=== PATIENT | male | born 1960 | race Caucasian/White ===

== ENCOUNTER 2018-01-30 17:43 | Inpatient (IN) | payer BC ==
--- NOTE | 2018-01-30 18:07 | ED ---
General Adult HPI - General Chief complaint: Nausea/Vomiting/Diarrhea Stated complaint: NVD Time Seen by Provider: 01/30/18 17:51 Source: patient, EMS, RN notes reviewed, old records reviewed Mode of arrival: EMS Limitations: no limitations - History of Present Illness Initial comments: 57-year-old male presents from outside hospital as transfer for surgical evaluation. Patient has remote history of Janette fundoplication, cholecystectomy. Patient states that approximately one week ago he developed some diarrhea and low-grade fevers. He states he took an antidiarrheal medication and became somewhat constipated for several days. He did take a laxative and has had diarrhea since that time over the past 3 days. He is also had significant dry heaving with no real vomit. He's had low-grade temperature over the past week as well. He presented to outside hospital received a symptomatic treatment, computed tomography scan, and was transferred for further evaluation and treatment. - Related Data Home Medications Medication Instructions Recorded Confirmed Cholestyramine (with Sugar) 0 gm PO DAILY 02/19/16 02/21/16 [Cholestyramine Powder] L.acidoph,Paracasei, B.lactis 1 each PO DAILY 02/19/16 02/19/16 [Probiotic] Nascent Iodine Drops 3 drops PO DAILY 02/19/16 02/19/16 Vitiamin B12 Drops 1 ml PO DAILY 02/19/16 02/19/16 Vitiamin D Drops 1 ml PO DAILY 02/19/16 02/19/16 Previous Rx's Medication Instructions Recorded Hydrocodone/Acetaminophen [Mims 1 - 2 each PO Q6HR PRN #30 tab 02/21/16 5-325] Allergies Allergy/AdvReac Type Severity Reaction Status Date / Time No Known Allergies Allergy Verified 01/30/18 17:58 Review of Systems ROS Statement: Those systems with pertinent positive or pertinent negative responses have been documented in the HPI. ROS Other: All systems not noted in ROS Statement are negative. Past Medical History Past Medical History: GERD/Reflux Additional Past Medical History / Comment(s): had reggie fundoplasty for gerd History of Any Multi-Drug Resistant Organisms: None Reported Past Surgical History: Cholecystectomy, Hernia Repair Additional Past Surgical History / Comment(s): Reggie fundoplasty Past Anesthesia/Blood Transfusion Reactions: Postoperative Nausea & Vomiting ( PONV) Past Psychological History: No Psychological Hx Reported Smoking Status: Never smoker Past Alcohol Use History: Occasional Past Drug Use History: None Reported - Past Family History Mother Family Medical History: No Reported History General Exam Limitations: no limitations General appearance: alert, in no apparent distress Head exam: Present: atraumatic, normocephalic Eye exam: Present: normal appearance, PERRL ENT exam: Present: mucous membranes dry, other (Herpetic outbreak on her lower lip) Neck exam: Present: normal inspection. Absent: tenderness, meningismus Respiratory exam: Present: normal lung sounds bilaterally. Absent: respiratory distress, wheezes Cardiovascular Exam: Present: normal rhythm, bradycardia GI/Abdominal exam: Present: soft, tenderness (Mild periumbilical tenderness). Absent: distended Extremities exam: Present: normal inspection, full ROM, normal capillary refill. Absent: pedal edema Back exam: Present: normal inspection, full ROM Neurological exam: Present: alert, oriented X3, CN II-XII intact. Absent: motor sensory deficit Psychiatric exam: Present: normal affect, normal mood Skin exam: Present: warm, dry, intact. Absent: cyanosis, diaphoretic Course Vital Signs 01/30/18 17:50 Temperature 99.3 F Pulse Rate 57 L Respiratory 14 Rate Blood Pressure 134/72 O2 Sat by Pulse 96 Oximetry Medical Decision Making - Medical Decision Making 57-year-old male presenting for further evaluation treatment as transfer patient from outside hospital. Patient is asymptomatic at the time my evaluation. He has no pain complaints. His had no nausea vomiting or diarrhea. Laboratory studies reviewed from outside hospital, white blood cell count is 17 , hemoglobin stable at 14, lipase normal, mild elevation in AST and ALT. Normal kidney function. Lactic acid normal 1.2. Patient did receive ceftriaxone and Flagyl as well as Protonix prior to transfer. CT reviewed shows inflammation surrounding the duodenum consistent with duodenitis, there is also some reactive changes around the aorta. Case is discussed with Dr. 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 Marie. Patient will be admitted to internal medicine, continue proton pump inhibitor and ceftriaxone and Flagyl. General surgery on consult. Disposition Clinical Impression: Duodenitis Disposition: ADMITTED IP TO THIS HOSP Condition: Stable Is patient prescribed a controlled substance at d/c from ED?: No Referrals: Jose Garrett MD [Primary Care Provider] - 1-2 days Decision to Admit Reason: Admit from EC Decision Date: 01/30/18 Decision Time: 18:07
[2018-01-30] MEDS ORDERED: NALOXONE 0.4 MG/ML 1 ML VIAL IV PRN (18:08)
[2018-01-30] MEDS ORDERED: 0.9% NACL WITH KCL 20 MEQ/L 1,000 ML IV SCH (18:15)
[2018-01-30 21:03] VITALS: BMI 25.8
[2018-01-30] MEDS: MORPHINE SULFATE 2 MG/ML SYRINGE IV PRN (21:14)
[2018-01-30] MEDS: PANTOPRAZOLE 40 MG/10 ML VIAL IVP SCH (21:15)
[2018-01-30] MEDS: ONDANSETRON 4 MG/2 ML VIAL IVP PRN (21:15)
[2018-01-30] MEDS ORDERED: ACETAMINOPHEN TAB 325 MG TAB PO PRN (22:33)
[2018-01-31] MEDS: metroNIDAZOLE-NS PMX 500 MG in SALINE 1 100ML.BAG IVPB SCH ×2 (00:13→09:20)
[2018-01-31] MEDS: MORPHINE SULFATE 2 MG/ML SYRINGE IV PRN ×4 (00:14→21:59)
[2018-01-31 08:24] LABS: Basophils # (A) 0.1 k/uL (0-0.2); Basophils % (A) 1 %; Eosinophils % (A) 0 %; HCT 40.6 % (39.0-53.0); HGB 13.6 gm/dL (13.0-17.5); Lymphocytes % (A) 15 %; MCH 30.3 pg (25.0-35.0); MCHC 33.4 g/dL (31.0-37.0); MCV 90.7 fL (80.0-100.0); Mean Platelet Volume 7.1; Monocytes # (A) 1.2 k/uL (0-1.0); Monocytes % (A) 9 %; Neutrophils # (A) 10.3 k/uL (1.3-7.7); Neutrophils % (A) 74 %; Platelet Count 370 k/uL (150-450); RBC 4.48 m/uL (4.30-5.90); RDW 13.2 % (11.5-15.5)
[2018-01-31 08:29] LABS: ALT 79 U/L (21-72); AST 61 U/L (17-59); Alkaline Phosphatase 151 U/L (38-126); Amylase 47 U/L (30-110); Anion Gap 14 mmol/L; Blood Urea Nitrogen 13 mg/dL (9-20); Calcium 8.3 mg/dL (8.4-10.2); Carbon Dioxide 24 mmol/L (22-30); Chloride 102 mmol/L (98-107); Glucose 90 mg/dL (74-99); Lipase 52 U/L (23-300); Magnesium 1.9 mg/dL (1.6-2.3); Potassium 3.9 mmol/L (3.5-5.1); Sodium 140 mmol/L (137-145); Total Bilirubin 0.5 mg/dL (0.2-1.3); Total Protein 5.5 g/dL (6.3-8.2)
[2018-01-31] MEDS ORDERED: cefTRIAXone IN SWFI 1,000 MG/10 ML SYRINGE IVP SCH (09:00)
[2018-01-31] MEDS: ONDANSETRON 4 MG/2 ML VIAL IVP PRN (09:19)
[2018-01-31] MEDS: PANTOPRAZOLE 40 MG/10 ML VIAL IVP SCH (09:25)
[2018-01-31] MEDS ORDERED: valACYclovir 500 MG TAB PO PRN (10:13)
[2018-01-31] MEDS ORDERED: CHOLESTYRAMINE (WITH SUGAR) 4 GM PACKET PO PRN (10:13)
[2018-01-31] MEDS ORDERED: PROPOFOL 10 MG/ML 20 ML VIAL IV ONE (10:21)
[2018-01-31] MEDS ORDERED: LIDOCAINE 1% INJ 10MG/ML (20 ML MDV) ONE (10:21)
[2018-01-31] MEDS ORDERED: SODIUM CHLORIDE 0.9% 500 ML IV ONE ×2 (10:28)
--- NOTE | 2018-01-31 10:45 | P.PCN ---
Date of Procedure: 01/31/18 Description of Procedure: PREOPERATIVE DIAGNOSIS: Duodenitis per computed tomography scan Epigastric abdominal pain History of Janette fundoplasty History of Darden's esophagus POSTOPERATIVE DIAGNOSIS: Superficial gastric antral ulcers without bleeding Superficial duodenal ulcer second portion without bleeding OPERATION: Esophagogastroduodenoscopy with biopsies along antrum and duodenum SURGEON: Shannon Huffman MD ANESTHESIA: MAC. INDICATIONS: The patient is a 57-year-old male transferred from outside facility with duodenitis including leukocytosis and abdominal pain. Benefits and risks of the procedure were described. Informed consent was obtained. DESCRIPTION: The patient was brought into the endoscopy suite and laid in the left lateral decubitus position. An Olympus gastroscope was passed along the posterior oropharynx down to the distal esophagus where the squamocolumnar junction was encountered at 40 cm from the incisors. The stomach was entered and no bile reflux was found. Additional findings are listed below. Biopsies with cold forceps were obtained of the antrum. The first through third portion of the duodenum was examined and remarkable for superficial duodenal ulcer second portion. Retroflexion of the scope confirmed Hill grade 1 lower esophageal valve. The squamocolumnar junction demostrated no LA grade A erosive esophagitis. The stomach was desufflated. The patient tolerated the procedure well. FINDINGS: Squamocolumnar junction 40 cm from the incisors. Diaphragmatic hiatus at 40 cm. No recurrent diaphragmatic hiatal hernia Janette fundoplasty intact Hill grade 1 lower esophageal valve. No LA grade A erosive esophagitis. Superficial duodenal ulcer without bleeding at second portion Multiple superficial gastric ulcers along antrum without bleeding No recurrent Darden's identified RECOMMENDATIONS: Start medication for multiple ulcers. IV fluid hydration. Upper endoscopy is needed
--- NOTE | 2018-01-31 11:40 | P.GSCN ---
<Deborah Spears - Last Filed: 01/31/18 11:15> History of Present Illness Consult date: 01/31/18 Reason for Consult: Nausea vomiting diarrhea History of present illness: 57-year-old male being seen at the request of the attending for a surgical eval who presented on the day of admission to the emergency room with a chief complaint of developing nausea vomiting no frequent stooling. Patient does have a history of having a prior cholecystectomy, romeo fundoplication. She reports over the last week he had not been feeling well increased fatigue decreased endurance felt like he was running a low-grade temp. Stated that he did develop nausea sensation poor oral intake. Stated that he did become constipated for several days and did take [id number] laxative has been having frequent loose stools since then. Patient did have a CAT scan done at [place] and was transferred to [place] for further eval and treatment patient is known to Dr. Huffman service was seen in February 2016 at that time underwent laparoscopic ventral incisional hernia repair with mesh. Patient states he has been doing relatively well up until the current episode. Seen in the emergency room the temp was 99.3 the Patient was seen by Dr. Huffman and did undergo today an EGD with biopsies along antrum and duodenum. Reviewing the procedure report indicate findings superficial gastric antral ulcers without bleeding superficial duodenal ulcer second portion without bleeding Review of Systems Essentially unremarkable except as mentioned in the present illness Past Medical History Past Medical History: GERD/Reflux Additional Past Medical History / Comment(s): had jerry fundoplasty for gerd in 2013, cholecystectomy in 2013 History of Any Multi-Drug Resistant Organisms: None Reported Past Surgical History: Cholecystectomy, Hernia Repair Additional Past Surgical History / Comment(s): Jerry fundoplasty Past Anesthesia/Blood Transfusion Reactions: Motion Sickness, Postoperative Nausea & Vomiting (PONV) Past Psychological History: No Psychological Hx Reported Smoking Status: Never smoker Past Alcohol Use History: Occasional Past Drug Use History: None Reported - Past Family History Mother Family Medical History: Cancer Additional Family Medical History / Comment(s): Breast Cancer; Father Family Medical History: Pneumonia Additional Family Medical History / Comment(s): Medications and Allergies Home Medications Medication Instructions Recorded Confirmed Type Cholestyramine (with Sugar) 4 gm PO DAILY PRN 01/30/18 01/30/18 History [Cholestyramine Packet] Cyanocobalamin (Vitamin B-12) 1,000 mcg PO DAILY 01/30/18 01/30/18 History [Vitamin B-12] Iodine 1 dose PO DAILY 01/30/18 01/30/18 History valACYclovir HCL [Valtrex] 500 mg PO Q8HR PRN 01/30/18 01/30/18 History Allergies Allergy/AdvReac Type Severity Reaction Status Date / Time No Known Allergies Allergy Verified 01/30/18 18:12 Surgical - Exam Vital Signs Temp Pulse Resp BP Pulse Ox 99.3 F 57 L 14 134/72 96 01/30/18 17:50 01/30/18 17:50 01/30/18 17:50 01/30/18 17:50 01/30/18 17:50 GENERAL APPEARANCE: 57-year-old male patient is alert, oriented, in no acute distress. VITAL SIGNS: Reviewed HEENT: Head is normocephalic and atraumatic. Pupils are equal and reactive. The nares are patent. Oropharynx is clear without lesions. Lower lip right corner scabbed area noted from a cold sore NECK: Supple without lymphadenopathy. Traches midline. HEART: S1, S2. Regular rate and rhythm. Denying chest pain LUNGS: No crackles or wheezes are heard. No shortness of breath on room air ABDOMEN: Soft, nontender, nondistended with good bowel sounds. No peritoneal signs. No palpable organomegaly or masses. Currently denying any nausea vomiting no stool documented EXTREMITIES: Normal skin color and turgor. No cyanosis, rash, ulceration, clubbing or edema. Radial pedal pulses are 2/4 bilaterally. NEUROLOGICAL: No focal deficits. Strength and sensation are grossly intact. Results - Labs 01/31/18 07:21 01/31/18 07:21 Abnormal Lab Results - Last 24 Hours (Table) 01/31/18 01/31/18 Range/Units 07:21 07:21 WBC 14.0 H (3.8-10.6) k/uL Neutrophils # 10.3 H (1.3-7.7) k/uL Monocytes # 1.2 H (0-1.0) k/uL Calcium 8.3 L (8.4-10.2) mg/dL AST 61 H (17-59) U/L ALT 79 H (21-72) U/L Alkaline Phosphatase 151 H (38-126) U/L Total Protein 5.5 L (6.3-8.2) g/dL Albumin 3.0 L (3.5-5.0) g/dL Diabetes panel 01/31/18 Range/Units 07:21 Sodium 140 (137-145) mmol/L Potassium 3.9 (3.5-5.1) mmol/L Chloride 102 (98-107) mmol/L Carbon Dioxide 24 (22-30) mmol/L BUN 13 (9-20) mg/dL Creatinine 0.77 (0.66-1.25) mg/dL Glucose 90 (74-99) mg/dL Calcium 8.3 L (8.4-10.2) mg/dL AST 61 H (17-59) U/L ALT 79 H (21-72) U/L Alkaline Phosphatase 151 H (38-126) U/L Total Protein 5.5 L (6.3-8.2) g/dL Albumin 3.0 L (3.5-5.0) g/dL Calcium panel 01/31/18 Range/Units 07:21 Calcium 8.3 L (8.4-10.2) mg/dL Albumin 3.0 L (3.5-5.0) g/dL Pituitary panel 01/31/18 Range/Units 07:21 Sodium 140 (137-145) mmol/L Potassium 3.9 (3.5-5.1) mmol/L Chloride 102 (98-107) mmol/L Carbon Dioxide 24 (22-30) mmol/L BUN 13 (9-20) mg/dL Creatinine 0.77 (0.66-1.25) mg/dL Glucose 90 (74-99) mg/dL Calcium 8.3 L (8.4-10.2) mg/dL Adrenal panel 01/31/18 Range/Units 07:21 Sodium 140 (137-145) mmol/L Potassium 3.9 (3.5-5.1) mmol/L Chloride 102 (98-107) mmol/L Carbon Dioxide 24 (22-30) mmol/L BUN 13 (9-20) mg/dL Creatinine 0.77 (0.66-1.25) mg/dL Glucose 90 (74-99) mg/dL Calcium 8.3 L (8.4-10.2) mg/dL Total Bilirubin 0.5 (0.2-1.3) mg/dL AST 61 H (17-59) U/L ALT 79 H (21-72) U/L Alkaline Phosphatase 151 H (38-126) U/L Total Protein 5.5 L (6.3-8.2) g/dL Albumin 3.0 L (3.5-5.0) g/dL Assessment and Plan Assessment: Impression Present on admission intractable nausea vomiting diarrhea suspect due to duodenitis Mild elevated AST and ALT Computed tomography scan abdomen pelvis report indicate duodenum consistent with duodenitis Status post EGD 31 of January showed superficial gastric antral ulcers and superficial duodenal ulcer second portion without bleeding Plan Continue the protonic 40 mg IV twice a day Clear liquid diet Anti emetics as ordered IV fluid for hydration Pain control Further recommendations pending will follow with you The above impression and plan of care have been discussed and directed by signing physician. Deborah Spears nurse practitioner acting as scribe for signing physician. <Shannon Huffman N - Last Filed: 01/31/18 17:44> Surgical - Exam Vital Signs Temp Pulse Resp BP Pulse Ox 99.3 F 57 L 14 134/72 96 01/30/18 17:50 01/30/18 17:50 01/30/18 17:50 01/30/18 17:50 01/30/18 17:50 Results - Labs 01/31/18 07:21 01/31/18 07:21 Abnormal Lab Results - Last 24 Hours (Table) 01/31/18 01/31/18 Range/Units 07:21 07:21 WBC 14.0 H (3.8-10.6) k/uL Neutrophils # 10.3 H (1.3-7.7) k/uL Monocytes # 1.2 H (0-1.0) k/uL Calcium 8.3 L (8.4-10.2) mg/dL AST 61 H (17-59) U/L ALT 79 H (21-72) U/L Alkaline Phosphatase 151 H (38-126) U/L Total Protein 5.5 L (6.3-8.2) g/dL Albumin 3.0 L (3.5-5.0) g/dL Diabetes panel 01/31/18 Range/Units 07:21 Sodium 140 (137-145) mmol/L Potassium 3.9 (3.5-5.1) mmol/L Chloride 102 (98-107) mmol/L Carbon Dioxide 24 (22-30) mmol/L BUN 13 (9-20) mg/dL Creatinine 0.77 (0.66-1.25) mg/dL Glucose 90 (74-99) mg/dL Calcium 8.3 L (8.4-10.2) mg/dL AST 61 H (17-59) U/L ALT 79 H (21-72) U/L Alkaline Phosphatase 151 H (38-126) U/L Total Protein 5.5 L (6.3-8.2) g/dL Albumin 3.0 L (3.5-5.0) g/dL Calcium panel 01/31/18 Range/Units 07:21 Calcium 8.3 L (8.4-10.2) mg/dL Albumin 3.0 L (3.5-5.0) g/dL Pituitary panel 01/31/18 Range/Units 07:21 Sodium 140 (137-145) mmol/L Potassium 3.9 (3.5-5.1) mmol/L Chloride 102 (98-107) mmol/L Carbon Dioxide 24 (22-30) mmol/L BUN 13 (9-20) mg/dL Creatinine 0.77 (0.66-1.25) mg/dL Glucose 90 (74-99) mg/dL Calcium 8.3 L (8.4-10.2) mg/dL Adrenal panel 01/31/18 Range/Units 07:21 Sodium 140 (137-145) mmol/L Potassium 3.9 (3.5-5.1) mmol/L Chloride 102 (98-107) mmol/L Carbon Dioxide 24 (22-30) mmol/L BUN 13 (9-20) mg/dL Creatinine 0.77 (0.66-1.25) mg/dL Glucose 90 (74-99) mg/dL Calcium 8.3 L (8.4-10.2) mg/dL Total Bilirubin 0.5 (0.2-1.3) mg/dL AST 61 H (17-59) U/L ALT 79 H (21-72) U/L Alkaline Phosphatase 151 H (38-126) U/L Total Protein 5.5 L (6.3-8.2) g/dL Albumin 3.0 L (3.5-5.0) g/dL
[2018-01-31] MEDS ORDERED: HYDROcodone/APAP 5-325MG 1 EACH TAB PO PRN (11:41)
[2018-01-31] MEDS ORDERED: SUCRALFATE 1 GM TAB PO SCH (12:00)
[2018-01-31] MEDS: CYANOCOBALAMIN 500 MCG TAB PO SCH (12:52)
[2018-01-31] MEDS: SODIUM CHLORIDE 0.9% 1,000 ML IV SCH ×2 (12:53→13:55)
[2018-01-31] MEDS ORDERED: FAMOTIDINE 20 MG TAB PO SCH (14:30)
[2018-01-31] MEDS: PIPERACILLIN-TAZOBACTAM 3.375 GM in DEXTROSE/WATER 1 50ML.BAG IVPB SCH (15:51)
--- NOTE | 2018-01-31 16:45 | HP ---
HISTORY AND PHYSICAL DATE OF ADMISSION: 01/30/2018 DATE OF SERVICE: 01/31/2018 PRESENTING COMPLAINT: Nausea, vomiting, diarrhea. HISTORY OF PRESENTING COMPLAINT: This is a very pleasant 57-year-old patient who follows with Dr. Garrett. The patient about a week ago started to have severe diarrhea that started Wednesday, a week ago. The next day patient started having severe bouts of vomiting, started having shaking and chills, then really felt tired and rundown. The next day patient's got admitted to the hospital and then patient had to take her down to the [facility]. The patient did not have a bowel movement for the next 4 days, continued to feel weak, tired, rundown, came back, started again having diarrhea, nausea and vomiting, feeling tired and rundown again, and finally ended up at an outside hospital. A CT scan done there did show patient to have what appeared to be duodenitis/ileitis, and the patient was transferred here. Earlier today in the morning Dr. Huffman did an EGD and the patient was found to have superficial gastric and duodenal ulcer. Patient has a history of Janette fundoplication done previously. The patient does feel tired and rundown. REVIEW OF SYSTEMS: CONSTITUTIONAL: Weak, tired, rundown. HEENT: Patient has cold sores on the lips. RESPIRATORY: None. CARDIOVASCULAR: None. GASTROINTESTINAL: As above. GENITOURINARY: None. MUSCULOSKELETAL: None. DERMATOLOGICAL: None. HEMATOLOGICAL: None. LYMPHATICS: None. PSYCHIATRY: None. NEUROLOGICAL: None. PAST MEDICAL HISTORY: 1. GERD. 2. Vitamin B12 deficiency. PAST SURGICAL HISTORY: 1. Cholecystectomy. 2. Janette fundoplasty. 3. Hernia repair. 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 Does not smoke. Alcohol occasionally. . FAMILY HISTORY: Breast cancer. HOME MEDICATIONS: 1. Cholestyramine 4 grams p.o. daily p.r.n. 2. Valtrex 500 mg q.8 p.r.n. 3. Iodine 1 dose p.o. daily. 4. Vitamin B12 1000 mcg p.o. daily. ALLERGIES: NONE. PHYSICAL EXAMINATION: VITAL SIGNS ON PRESENTATION: Temperature 99.3, pulse 57, respiration 14, blood pressure 134/72, pulse ox 96% on room air. GENERAL APPEARANCE: Average build. Lying in bed, tired- EYES: Pupils equal. Conjunctivae normal. HEENT: External appearance of nose and ears normal. Oral cavity with cold sores on the lower lip on the right side. NECK: JVD not raised. Mass not palpable. RESPIRATORY: Effort normal. Lungs are clear. CARDIOVASCULAR: First and second sounds normal. No edema. ABDOMEN: Soft. Mild central tenderness. No guarding or rigidity. Liver and spleen not palpable. LYMPHATIC: No lymph node palpable in neck or axillae. PSYCHIATRY: Alert and oriented x3. Mood and affect normal. NEUROLOGICAL: Pupils equal. Cranial nerves grossly intact. Power and sensation grossly intact. INVESTIGATIONS: White count 14, hemoglobin 13.6, potassium 3.9, AST 61, ALT 79, albumin 3.0. ASSESSMENT: 1. This is a patient who for one week has had nausea, vomiting, diarrhea , including episodes of chills and rigors. Patient's CT scan at the outside hospital at [place] showed evidence of duodenitis and possible ileitis. The patient has a diagnosis compatible with the same. Could be from a viral/bacterial component. 2. History of Janette fundoplication. 3. Superficial gastric and duodenal ulcer per esophagogastroduodenoscopy. 4. Chronic vitamin B12 deficiency. 5. Herpes simplex virus, type I, labialis. PLAN: Patient will be put on IV Zosyn and IV fluids and will leave it on clear liquids. Will get a GI opinion. Expect patient same. Will also add H2 sindhu. Will also add a PPI in view of the EGD findings. Care was discussed with the patient. Questions were answered. MMODL / IJN: [id number] /
[2018-01-31] MEDS: valACYclovir 500 MG TAB PO SCH (22:00)
[2018-02-01] MEDS: PIPERACILLIN-TAZOBACTAM 3.375 GM in DEXTROSE/WATER 1 50ML.BAG IVPB SCH ×4 (00:01→23:13)
[2018-02-01] MEDS: MORPHINE SULFATE 2 MG/ML SYRINGE IV PRN ×4 (04:58→21:03)
[2018-02-01] MEDS: PANTOPRAZOLE 40 MG TABLET PO SCH (08:19)
[2018-02-01] MEDS: valACYclovir 500 MG TAB PO SCH ×2 (08:19→21:04)
--- NOTE | 2018-02-01 10:10 | P.PN ---
<ReganZeniaDeborah M - Last Filed: 02/01/18 09:58> Subjective Progress Note Date: 02/01/18 57-year-old male sitting up in bed in no new events denies any nausea vomiting no labs this morning afebrile reportedly tolerating full liquid diet Postop January 31 EGD with biopsies along the antrum and duodenum showing superficial gastric ulcers without bleeding and superficial duodenal ulcer second portion without bleeding Objective - Vital Signs Vital signs: Vital Signs Temp 98.4 F 02/01/18 08:02 Pulse 54 L 02/01/18 08:02 Resp 16 02/01/18 08:02 BP 129/61 02/01/18 08:02 Pulse Ox 93 L 02/01/18 08:02 Intake & Output 01/31/18 02/01/18 02/01/18 18:59 06:59 18:59 Intake Total 50 325 Balance 50 325 Intake: IV 50 Intake, IV Titration 325 Amount 0.9% NaCl with KCl 20 Meq 175 /l 1,000 ml @ 50 mls/hr IV .Q20H NICOLE Rx#: [id number] Piperacillin-Tazobactam 3 50 .375 gm In Dextrose/Water 1 50ml.bag @ 12.5 mls/hr IVPB Q8HR NICOLE Rx#: [id number] metroNIDAZOLE-NS PMX 500 100 mg In Saline 1 100ml.bag @ 100 mls/hr IVPB Q8HR NICOLE Rx#:[id number] Other: # Voids 2 2 - Exam Physical exam 57-year-old male sitting up in bed appears in no acute distress Lungs adequate air movement bilaterally on room air with no shortness of breath sats 93% Heart S1-S2 audible regular Abdomen soft nontender no nausea no vomiting Extremities no edema - Labs CBC & Chem 7: 01/31/18 07:21 01/31/18 07:21 Assessment and Plan Assessment: Impression Present on admission intractable nausea vomiting diarrhea suspect due to duodenitis Mild elevated AST and ALT Computed tomography scan abdomen pelvis report indicate duodenum consistent with duodenitis Status post EGD 31 of January showed superficial gastric antral ulcers and superficial duodenal ulcer second portion without bleeding Plan Continue protonix 40 mg daily Clear liquid diet Anti emetics as ordered IV fluid for hydration Pain control From a surgical perspective okay to proceed with a discharge defer to the timing to the attending will follow with you The above impression and plan of care have been discussed and directed by signing physician. Deborah Spears nurse practitioner acting as scribe for signing physician. <ArmidaShannon N - Last Filed: 02/01/18 19:59> Objective - Vital Signs Vital signs: Vital Signs Temp 97.1 F L 02/01/18 14:12 Pulse 65 02/01/18 14:12 Resp 16 02/01/18 14:12 BP 127/71 02/01/18 14:12 Pulse Ox 93 L 02/01/18 14:12 Intake & Output 02/01/18 02/01/18 02/02/18 06:59 18:59 06:59 Intake Total 325 50 Balance 325 50 Intake: IV 50 Piperacillin-Tazobactam 3 50 .375 gm In Dextrose/Water 1 50ml.bag @ 12.5 mls/hr IVPB Q8HR NICOLE Rx#: [id number] Intake, IV Titration 325 Amount 0.9% NaCl with KCl 20 Meq 175 /l 1,000 ml @ 50 mls/hr IV .Q20H NICOLE Rx#: [id number] Piperacillin-Tazobactam 3 50 .375 gm In Dextrose/Water 1 50ml.bag @ 12.5 mls/hr IVPB Q8HR NICOLE Rx#: [id number] metroNIDAZOLE-NS PMX 500 100 mg In Saline 1 100ml.bag @ 100 mls/hr IVPB Q8HR NICOLE Rx#:[id number] Other: # Voids 2 - Labs CBC & Chem 7: 01/31/18 07:21 01/31/18 07:21
[2018-02-01] MEDS: CYANOCOBALAMIN 500 MCG TAB PO SCH (10:18)
--- NOTE | 2018-02-01 10:33 | P.CONS ---
History of Present Illness - Reason for Consult Consult date: 02/01/18 abdominal pain Requesting physician: Dayton Arora - History of Present Illness 57-year-old gentleman well-known to Dr. Marie with a past history of GERD status post Janette fundoplasty 4 years ago admitted with increased nausea vomiting epigastric discomfort. Patient has been taking Motrin over the past week secondary to low-grade temp. CT abdomen and pelvis from outside facility reported duodenitis. He underwent EGD with biopsies yesterday with Dr. Huffman with findings of superficial gastric antral ulcers without bleeding and a superficial duodenal ulcer second portion. Denies hematemesis hematochezia melena. Has a few alcohol drinks mostly on the weekends. No chemistries to review today however white count yesterday 14. Hemoglobin 13.6. BUN 13. Creatinine 0.7. AST 61. ALT 79. AP 151. Total bilirubin 0.5. Review of Systems Constitutional: Denies fever, chills, sweats, weight gain, or loss. HEENT: Negative for migraines, blurred vision or loss, earaches, drainage, tinnitus, oral mucosal lesions, dysphagia, or odynophagia. Cardiac: Negative for chest pain, arrhythmias, or palpitation. Respiratory: Negative for shortness of breath, hemoptysis, cough, or sputum production. Gastrointestinal: See HPI for pertinent findings. Genitourinary: Negative for hematuria, urgency, frequency, polyuria, dysuria, or penile discharge. Musculoskeletal: Negative for muscle aches, swelling, arthritis, and arthralgias. Neurologic: Negative for stroke or TIA. Endocrine: Negative for thyroid problems. Skin: Negative for rash or itching. Psychiatric: Negative history for depression and anxiety Past Medical History Past Medical History: GERD/Reflux Additional Past Medical History / Comment(s): had jerry fundoplasty for gerd in 2014, cholecystectomy in 2014 History of Any Multi-Drug Resistant Organisms: None Reported Past Surgical History: Cholecystectomy, Hernia Repair Additional Past Surgical History / Comment(s): Jerry fundoplasty Past Anesthesia/Blood Transfusion Reactions: Motion Sickness, Postoperative Nausea & Vomiting (PONV) Past Psychological History: No Psychological Hx Reported Smoking Status: Never smoker Past Alcohol Use History: Occasional Past Drug Use History: None Reported - Past Family History Mother Family Medical History: Cancer Additional Family Medical History / Comment(s): Breast Cancer; Father Family Medical History: Pneumonia Additional Family Medical History / Comment(s): Medications and Allergies Home Medications Medication Instructions Recorded Confirmed Type Cholestyramine (with Sugar) 4 gm PO DAILY PRN 01/30/18 01/30/18 History [Cholestyramine Packet] Cyanocobalamin (Vitamin B-12) 1,000 mcg PO DAILY 01/30/18 01/30/18 History [Vitamin B-12] Iodine 1 dose PO DAILY 01/30/18 01/30/18 History valACYclovir HCL [Valtrex] 500 mg PO Q8HR PRN 01/30/18 01/30/18 History Pantoprazole Sodium [Protonix] 40 mg PO DAILY #30 tablet. 02/01/18 Rx Allergies Allergy/AdvReac Type Severity Reaction Status Date / Time No Known Allergies Allergy Verified 01/30/18 18:12 Physical Exam Vitals: Vital Signs Temp Pulse Resp BP Pulse Ox 02/01/18 09:15 98.4 F 55 L 16 143/75 93 L 02/01/18 08:02 98.4 F 54 L 16 129/61 93 L 02/01/18 02:00 97.2 F L 59 L 16 138/72 92 L 01/31/18 20:00 97.6 F 59 L 18 146/88 92 L 01/31/18 15:27 99.3 F 65 16 149/67 95 01/31/18 10:55 99.5 F 63 16 144/74 95 Intake and Output 01/31/18 02/01/18 02/01/18 22:59 06:59 14:59 Intake Total 175 150 Balance 175 150 Intake: Intake, IV Titration 175 150 Amount 0.9% NaCl with KCl 20 Meq 175 /l 1,000 ml @ 50 mls/hr IV .Q20H [facility] Rx#: [id number] Piperacillin-Tazobactam 3 50 .375 gm In Dextrose/Water 1 50ml.bag @ 12.5 mls/hr IVPB Q8HR [facility] Rx#: [id number] metroNIDAZOLE-NS PMX 500 100 mg In Saline 1 100ml.bag @ 100 mls/hr IVPB Q8HR [facility] Rx#:[id number] Other: # Voids 2 2 General appearance: The patient is alert, oriented, in no acute distress. HET: Head is normocephalic and atraumatic. Pupils are equal and reactive. Oropharynx is clear without lesions. Neck: Supple without lymphadenopathy. Trachea midline. Heart: S1 S2. Regular rate and rhythm. Lungs: No crackles or wheezes are heard. Abdomen: Soft, nontender, nondistended with bowel sounds. No peritoneal signs. No palpable organomegaly or masses. Extremities: Normal skin color and turgor. No cyanosis, rash, ulceration, clubbing, or edema. Radial and pedal pulses are 2/4 bilaterally. Neurological: No focal deficits. Strength and sensation are grossly intact. Results CBC & Chem 7: 02/01/18 20:18 02/01/18 20:18 Assessment and Plan (1) Epigastric pain Narrative/Plan: Suspect NSAID induced status post EGD with findings of superficial gastric antral ulcers and duodenal ulcer second portion without bleeding. Current Visit: Yes Status: Acute Code(s): R10.13 - EPIGASTRIC PAIN SNOMED Code(s): 29769617 (2) Duodenitis Current Visit: Yes Status: Acute Code(s): K29.80 - DUODENITIS WITHOUT BLEEDING SNOMED Code(s): 60200124 (3) Barretts esophagus Current Visit: Yes Status: Resolved Code(s): K22.70 - JEROME'S ESOPHAGUS WITHOUT DYSPLASIA SNOMED Code(s): 075533308 (4) Transaminitis Narrative/Plan: Mild transaminitis etiology unclear possible secondary to duodenitis superficial duodenal ulcer however alcohol component cannot be entirely excluded Current Visit: Yes Status: Acute Code(s): R74.0 - NONSPEC ELEV OF LEVELS OF TRANSAMNS & LACTIC ACID DEHYDRGNSE SNOMED Code(s): 811437625 Plan: 1. Avoid NSAIDs and alcohol. Protonix 40 mg daily. Repeat CMP if stable discharge per medicine and surgery. Follow up with [facility] as advised. Thank you for this kind referral and the opportunity to participate in the care of your patient. This consultation was discussed with Dr. Fatima. The impression and plan of care have been directed as dictated.
[2018-02-01] MEDS: ONDANSETRON 4 MG/2 ML VIAL IVP PRN (18:18)
--- NOTE | 2018-02-01 20:32 | P.PN ---
Progress Note - Text Progress Note Date: 02/01/18 Patient seen and evaluated. He reports abdominal pain and diarrhea after drinking predominately milk products. He has history of diverticulosis. CBC and CMP is pending. Recommend regular diet. CBC and CMP ordered. Likely discharge home with follow-up in 2 weeks discussed with patient pending results of blood work.
[2018-02-01 20:39] LABS: Basophils # (A) 0.1 k/uL (0-0.2); Basophils % (A) 1 %; Eosinophils # (A) 0.2 k/uL (0-0.7); Eosinophils % (A) 1 %; HCT 38.6 % (39.0-53.0); HGB 13.1 gm/dL (13.0-17.5); Lymphocytes # (A) 2.6 k/uL (1.0-4.8); Lymphocytes % (A) 17 %; MCH 29.7 pg (25.0-35.0); MCHC 33.9 g/dL (31.0-37.0); MCV 87.7 fL (80.0-100.0); Mean Platelet Volume 6.4; Monocytes # (A) 1.1 k/uL (0-1.0); Monocytes % (A) 7 %; Neutrophils # (A) 10.6 k/uL (1.3-7.7); Neutrophils % (A) 72 %; Platelet Count 479 k/uL (150-450); RDW 13.2 % (11.5-15.5); WBC 14.7 k/uL (3.8-10.6)
[2018-02-01 21:12] LABS: ALT 56 U/L (21-72); AST 34 U/L (17-59); Albumin 2.9 g/dL (3.5-5.0); Alkaline Phosphatase 122 U/L (38-126); Anion Gap 11 mmol/L; Blood Urea Nitrogen 9 mg/dL (9-20); Calcium 8.2 mg/dL (8.4-10.2); Carbon Dioxide 26 mmol/L (22-30); Chloride 100 mmol/L (98-107); Glucose 99 mg/dL (74-99); Potassium 3.6 mmol/L (3.5-5.1); Sodium 137 mmol/L (137-145); Total Bilirubin 0.6 mg/dL (0.2-1.3); Total Protein 5.4 g/dL (6.3-8.2)
--- NOTE | 2018-02-01 23:03 | PN ---
PROGRESS NOTE DATE OF SERVICE: 02/01/2018 PRESENTING COMPLAINT: No nausea, vomiting, diarrhea. INTERVAL HISTORY: This patient presented with abdominal pain, felt to have duodenitis, ileitis. Status post EGD with superficial ulcers, no bleeding. Still having some abdominal pain. Did tolerate some liquids. REVIEW OF SYSTEMS: Done for constitutional, cardiovascular, GI, pulmonary; relevant findings as above. CURRENT MEDICATIONS: Reviewed. They include IV Zosyn and Protonix. PHYSICAL EXAMINATION: Afebrile. Pulse 54, respiration 16, blood pressure 121/61, pulse ox 93% on room air. GENERAL APPEARANCE: Lying in bed, tired-appearing. EYES: Pupils equal. Conjunctivae normal. HEENT: External appearance of nose and ears normal. Oral cavity: Patient has cold sores on the outside lower lip. NECK: JVD not raised. Mass not palpable. RESPIRATORY: Effort normal. Lungs are clear. CARDIOVASCULAR: First and second sounds normal. No edema. ABDOMEN: Mild tenderness. No guarding or rigidity. Bowel sounds present. PSYCHIATRY: Alert and oriented x3. Mood and affect normal. INVESTIGATIONS: White count 14.7, potassium 3.6. AST and ALT are coming down. ASSESSMENT: 1. Possibly acute ileitis and acute duodenitis. It well could be viral. Cannot rule out a bacterial component. 2. History of Janette fundoplication. 3. Superficial gastric duodenal ulcer per esophagogastroduodenoscopy. 4. Chronic vitamin B12 deficiency. 5. Herpes simplex, type 1 labialis. PLAN: Continue current medication and treatment plan. Advance diet as tolerated. Patient encouraged to ambulate. MMODL / IJN: [id number] /
[2018-02-02] MEDS: IOPAMIDOL-300 CONTRAST 30 ML VIAL (ORAL USE) PO PRN ×2 (06:01→06:50)
[2018-02-02] MEDS: MORPHINE SULFATE 2 MG/ML SYRINGE IV PRN ×4 (06:06→19:58)
[2018-02-02] MEDS: PIPERACILLIN-TAZOBACTAM 3.375 GM in DEXTROSE/WATER 1 50ML.BAG IVPB SCH ×2 (08:05→15:29)
[2018-02-02] MEDS: PANTOPRAZOLE 40 MG TABLET PO SCH (08:05)
[2018-02-02] MEDS: valACYclovir 500 MG TAB PO SCH ×2 (08:05→19:58)
--- NOTE | 2018-02-02 10:43 | CT ---
EXAMINATION TYPE: CT abdomen pelvis w con DATE OF EXAM: 02/02/2018 COMPARISON: CT abdomen pelvis 01/30/2018 HISTORY: Duodenitis CT DLP: 1503 mGycm Automated exposure control for dose reduction was used. TECHNIQUE: Helical acquisition of images from the lung bases through the pelvis have been completed. CONTRAST: Performed with Oral Contrast and with IV Contrast, patient injected with 100 mL of Isovue 300. FINDINGS: LUNG BASES: Bibasilar atelectatic changes are present, there are small associated effusion. AORTA: No significant abnormality is appreciated. LIVER/GB: Liver shows low attenuation possibly due to hepatic steatosis, gallbladder is absent PANCREAS: No significant abnormality is seen. SPLEEN: No significant abnormality is seen. ADRENALS: No significant abnormality is seen. KIDNEYS: Hypodense foci are associated with the bilateral kidneys. REPRODUCTIVE ORGANS: No significant abnormality is seen BOWEL: Questionable mucosal thickening within the colon, extensive diverticular change noted in the sigmoid, the appendix thought to be normal. Soft tissue noted within the cecum region could be relate d to luminal content, difficult to exclude a mucosal lesion. FREE AIR: No Free Air visible. ASCITES: Some minimal inflammatory change is present within the mesenteric fat, some minimal fluid e xtending to the pelvis PELVIC ADENOPATHY: None visualized. RETROPERITONEAL ADENOPATHY: No Retroperitoneal Adenopathy visible. URINARY BLADDER: No significant abnormality is seen. OSSEOUS STRUCTURES: Degenerative disc changes are noted in the visualized lumbar spine. IMPRESSION: CORRELATE FOR POSSIBLE COLITIS, CONSIDER BOWEL SURVEILLANCE IF THIS IS NOT BEEN PERFORMED. FINDINGS A T THE LEVEL OF THE CECUM DESCRIBED. INDETERMINATE FLUID WITHIN THE ABDOMEN, CORRELATE FOR PERITONI TIS. SMALL BASILAR EFFUSIONS AND ASSOCIATED ATELECTASIS. DIVERTICULOSIS. ADDITIONAL FINDINGS ABOVE.
--- NOTE | 2018-02-02 10:58 | P.PN ---
Subjective Progress Note Date: 02/02/18 The patient is a 57-year-old gentleman who presented with initial duodenitis on computed tomography scan. Yesterday he reports increased diarrhea including the left lower quadrant abdominal pain. CBC came back elevated and had CT of the abdomen pelvis is ordered by me. He still reports no moderate improvement of his symptoms. He is having diarrhea secondary to full liquid diet as well. Upper endoscopy confirmed duodenal including gastric ulcers. Objective - Vital Signs Vital signs: Vital Signs Temp 97.2 F L 02/02/18 07:03 Pulse 50 L 02/02/18 07:03 Resp 14 02/02/18 07:03 BP 136/68 02/02/18 07:03 Pulse Ox 96 02/02/18 07:03 Intake & Output 02/01/18 02/02/18 02/02/18 18:59 06:59 18:59 Intake Total 50 Balance 50 Weight 81.647 kg Intake: IV 50 Piperacillin-Tazobactam 3 50 .375 gm In Dextrose/Water 1 50ml.bag @ 12.5 mls/hr IVPB Q8HR [facility] Rx#: [id number] Other: # Voids 1 - Exam GENERAL: Well developed and in no acute distress. Pleasant. HEENT: No sclera icterus. Extraocular movements grossly intact. Moist buccal mucosa. Head is atraumatic, normocephalic. Hears conversational speech. No nasal drainage. NECK: Supple without lymphadenopathy. CHEST: Non-labored respirations and equal bilateral excursions. CARDIOVASCULAR: Regular rate and rhythm. Palpable 2+ radial pulses. ABDOMEN: Soft, mild tenderness left lower quadrant. Mild distention. MUSCULOSKELETAL: No clubbing, cyanosis or edema. NEUROLOGIC: No focal or lateralizing signs. PSYCH: Appropriate affect. Alert and oriented to person, place and time. SKIN: Good skin turgor. Well perfused. - Labs CBC & Chem 7: 02/01/18 20:18 02/01/18 20:18 Labs: Abnormal Lab Results - Last 24 Hours (Table) 02/01/18 02/01/18 Range/Units 20:18 20:18 WBC 14.7 H (3.8-10.6) k/uL Hct 38.6 L (39.0-53.0) % Plt Count 479 H (150-450) k/uL Neutrophils # 10.6 H (1.3-7.7) k/uL Monocytes # 1.1 H (0-1.0) k/uL Calcium 8.2 L (8.4-10.2) mg/dL Total Protein 5.4 L (6.3-8.2) g/dL Albumin 2.9 L (3.5-5.0) g/dL - Imaging and Cardiology CT scan - abdomen: image reviewed CT scan - pelvis: image reviewed (Images consistent with acute diverticulitis) Assessment and Plan (1) Diverticulitis large intestine Current Visit: Yes Status: Acute Code(s): K57.32 - DVTRCLI OF LG INT W/O PERFORATION OR ABSCESS W/O BLEEDING SNOMED Code(s): 8714078 (2) Leukocytosis Current Visit: Yes Status: Acute Code(s): D72.829 - ELEVATED WHITE BLOOD CELL COUNT, UNSPECIFIED SNOMED Code(s): 109890029 (3) Epigastric pain Current Visit: Yes Status: Acute Code(s): R10.13 - EPIGASTRIC PAIN SNOMED Code(s): 78848372 (4) Transaminitis Current Visit: Yes Status: Acute Code(s): R74.0 - NONSPEC ELEV OF LEVELS OF TRANSAMNS & LACTIC ACID DEHYDRGNSE SNOMED Code(s): 435491035 (5) Gastric ulcer Current Visit: Yes Status: Acute Code(s): K25.9 - GASTRIC ULCER, UNSP ACUTE OR CHRONIC, W/O HEMOR OR PERF SNOMED Code(s): 838148534 (6) Duodenal ulcer Current Visit: Yes Status: Acute Code(s): K26.9 - DUODENAL ULCER, UNSP ACUTE OR CHRONIC, W/O HEMOR OR PERF SNOMED Code(s): 64773852 Plan: 1. I reviewed his computed tomography scan findings with him which is consistent with his clinical picture of new left lower quadrant abdominal pain and diarrhea consistent with diverticulitis acute. 2. Will need inpatient hospitalization for treatment of acute diverticulitis as he is not responding to antibiotics. 3. PPIs for gastric and duodenal ulcers.
[2018-02-02] MEDS: CYANOCOBALAMIN 500 MCG TAB PO SCH (11:00)
[2018-02-02] MEDS: LACTATED RINGERS 1,000 ML IV SCH ×2 (15:25→23:49)
[2018-02-02] MEDS ORDERED: WITCH HAZEL 1 EACH MED..PAD TOPICAL PRN (15:30)
--- NOTE | 2018-02-02 18:38 | PN ---
PROGRESS NOTE DATE OF SERVICE: 02/02/2018 PRESENTING COMPLAINT: Abdominal pain. INTERVAL HISTORY: Patient presented abdominal pain felt to be duodenitis, ileitis. CT scan was done and is also showing possible element of diverticulitis. Still having some abdominal pain. Patient is having some loose stools. REVIEW OF SYSTEMS: Done for constitutional, cardiovascular, GI, pulmonary; relevant findings as above. CURRENT MEDICATIONS: Reviewed. They include: 1. IV Zosyn. 2. IV fluids. 3. Protonix. PHYSICAL EXAMINATION: Afebrile. Pulse 50, respiration 14, blood pressure 136/68, pulse ox 96% on room air. GENERAL APPEARANCE: Lying in bed, awake. EYES: Pupils equal. Conjunctivae normal. HEENT: External appearance of nose and ears normal. Oral cavity normal. He has cold sores on the outer lower lip. NECK: JVD not raised. Mass not palpable. RESPIRATORY: Effort normal. Lungs are clear. CARDIOVASCULAR: First and second sounds normal. No edema. ABDOMEN: Mild tenderness. No guarding or rigidity. PSYCHIATRY: Alert and oriented x3. Mood and affect normal. INVESTIGATIONS: White count yesterday was 14.7. Potassium 3.6. ASSESSMENT: 1. Acute ileitis/could be mild colitis/duodenitis. 2. History of Janette fundoplication. 3. Superficial gastric and duodenal ulcer per esophagogastroduodenoscopy. 4. Chronic vitamin B12 deficiency. 5. Herpes simplex, type 1, labialis. PLAN: Continue current medication and treatment plan. Patient is on a liquid diet. Will add Imodium after C difficile is ruled out. MMODL / IJN: [id number] /
--- NOTE | 2018-02-02 20:28 | P.PN ---
Progress Note - Text Progress Note Date: 02/02/18 Patient's computed tomography scan consistent with colitis including clinical picture. Patient switched over to Flagyl 500 mg. GI following for colitis. No surgical intervention required. Dr. Chung to cover in my absence
[2018-02-02] MEDS ORDERED: metroNIDAZOLE-NS PMX 500 MG in SALINE 1 100ML.BAG IVPB SCH (20:30)
[2018-02-02] MEDS: DIPHENOX-ATROP 2.5-0.025 MG 1 EACH TAB PO SCH (21:38)
[2018-02-03] MEDS: MORPHINE SULFATE 2 MG/ML SYRINGE IV PRN ×2 (03:44→08:09)
[2018-02-03] MEDS: metroNIDAZOLE-NS PMX 500 MG in SALINE 1 100ML.BAG IVPB SCH ×2 (05:34→13:27)
[2018-02-03] MEDS: ONDANSETRON 4 MG/2 ML VIAL IVP PRN (05:34)
[2018-02-03] MEDS: LACTATED RINGERS 1,000 ML IV SCH (05:34)
[2018-02-03 06:36] VITALS: BP 138/76; PULSE 62; RESP 20; TEMP 99.1
[2018-02-03] MEDS: CYANOCOBALAMIN 500 MCG TAB PO SCH (08:08)
[2018-02-03] MEDS: PANTOPRAZOLE 40 MG TABLET PO SCH (08:09)
[2018-02-03] MEDS: DIPHENOX-ATROP 2.5-0.025 MG 1 EACH TAB PO SCH ×2 (08:13→13:27)
[2018-02-03] MEDS: valACYclovir 500 MG TAB PO SCH (08:13)
[2018-02-03 09:04] LABS: Basophils # (A) 0.1 k/uL (0-0.2); Basophils % (A) 1 %; Eosinophils # (A) 0.3 k/uL (0-0.7); Eosinophils % (A) 2 %; HCT 39.3 % (39.0-53.0); HGB 13.3 gm/dL (13.0-17.5); Lymphocytes # (A) 2.7 k/uL (1.0-4.8); Lymphocytes % (A) 20 %; MCH 30.5 pg (25.0-35.0); MCHC 33.7 g/dL (31.0-37.0); MCV 90.4 fL (80.0-100.0); Mean Platelet Volume 6.9; Monocytes # (A) 0.9 k/uL (0-1.0); Monocytes % (A) 7 %; Neutrophils # (A) 9.4 k/uL (1.3-7.7); Neutrophils % (A) 69 %; Platelet Count 486 k/uL (150-450); RBC 4.35 m/uL (4.30-5.90); WBC 13.5 k/uL (3.8-10.6)
--- NOTE | 2018-02-03 10:43 | P.PN ---
Subjective Progress Note Date: 02/03/18 Principal diagnosis: Epigastric pain antral duodenal ulcers lower abdominal pain colitis Status post EGD for epigastric pain evaluation superficial antral duodenal ulcers. Developed left lower abdominal pain CT abdomen reported possible colitis diverticulosis. Receiving antibiotics. Stool C. diff negative. Diarrhea improving. Minimal abdominal discomfort. Tolerating diet. Dysphagia and discharged today. Afebrile. White count 13.5. Objective - Vital Signs Vital signs: Vital Signs Temp 99.1 F 02/03/18 06:36 Pulse 62 02/03/18 06:36 Resp 20 02/03/18 06:36 BP 138/76 02/03/18 06:36 Pulse Ox 94 L 02/03/18 06:36 Intake & Output 02/02/18 02/03/18 02/03/18 18:59 06:59 18:59 Weight 81.647 kg Other: # Voids 2 2 - Exam General appearance: The patient is alert, oriented, in no acute distress. HET: Head is normocephalic and atraumatic. Pupils are equal and reactive. Oropharynx is clear without lesions. Neck: Supple without lymphadenopathy. Trachea midline. Heart: S1 S2. Regular rate and rhythm. Lungs: No crackles or wheezes are heard. Abdomen: Soft, mild tenderness of left lower abdomen, nondistended with bowel sounds. No peritoneal signs. No palpable organomegaly or masses. Extremities: Normal skin color and turgor. No cyanosis, rash, ulceration, clubbing, or edema. Radial and pedal pulses are 2/4 bilaterally. Neurological: No focal deficits. Strength and sensation are grossly intact. - Labs CBC & Chem 7: 02/03/18 08:07 02/01/18 20:18 Labs: Abnormal Lab Results - Last 24 Hours (Table) 02/03/18 Range/Units 08:07 WBC 13.5 H (3.8-10.6) k/uL Plt Count 486 H (150-450) k/uL Neutrophils # 9.4 H (1.3-7.7) k/uL Microbiology - Last 24 Hours (Table) 02/02/18 14:34 Stool Culture - Preliminary Stool Assessment and Plan (1) Epigastric pain Narrative/Plan: Suspect NSAID induced status post EGD with findings of superficial gastric antral ulcers and duodenal ulcer second portion without bleeding. Current Visit: Yes Status: Acute Code(s): R10.13 - EPIGASTRIC PAIN SNOMED Code(s): 89149770 (2) Duodenitis Current Visit: Yes Status: Acute Code(s): K29.80 - DUODENITIS WITHOUT BLEEDING SNOMED Code(s): 18304789 (3) Barretts esophagus Current Visit: Yes Status: Resolved Code(s): K22.70 - JEROME'S ESOPHAGUS WITHOUT DYSPLASIA SNOMED Code(s): 728183217 (4) Transaminitis Narrative/Plan: Improved resolved Current Visit: Yes Status: Acute Code(s): R74.0 - NONSPEC ELEV OF LEVELS OF TRANSAMNS & LACTIC ACID DEHYDRGNSE SNOMED Code(s): 175223710 (5) Colon, diverticulosis Narrative/Plan: Possible colitis with diarrhea C. diff negative Current Visit: Yes Status: Acute Code(s): K57.30 - DVRTCLOS OF LG INT W/O PERFORATION OR ABSCESS W/O BLEEDING SNOMED Code(s): 860335950 Plan: 1. Case discussed with Dr. Arora discharge per medicine today. Inpatient colonoscopy not advised at this time. Follow up with Dr. Huffman as advised for reevaluation and discussion of outpatient colonoscopy if applicable. Patient states he had a colonoscopy possibly less than 3 years ago. Imodium as needed. Protonix 40 mg daily. Assessment and plan a care discussed with Dr. Fatima
--- NOTE | 2018-02-03 11:45 | P.PN ---
Subjective Progress Note Date: 02/03/18 57-year-old male sitting up in bed. Denies any dizziness lightheadedness chest pain or shortness of breath. Reviewed with patient the plan of care. No surgical intervention required. GI eval noted. Stool for C. diff was negative. Patient states less stooling. Tolerating a diet. White count 13.5. Patient will follow-up in the outpatient setting with Dr. Huffman Objective - Vital Signs Vital signs: Vital Signs Temp 99.1 F 02/03/18 06:36 Pulse 62 02/03/18 06:36 Resp 20 02/03/18 06:36 BP 138/76 02/03/18 06:36 Pulse Ox 94 L 02/03/18 06:36 Intake & Output 02/02/18 02/03/18 02/03/18 18:59 06:59 18:59 Weight 81.647 kg Other: # Voids 2 2 - Exam Physical exam 57-year-old male sitting up in bed appears in no acute distress tolerating a diet states less bowel movements Lungs adequate air movement bilaterally on room air with no shortness of breath sats 93% Heart S1-S2 audible regular Abdomen soft nontender no nausea no vomiting Extremities no edema - Labs CBC & Chem 7: 02/03/18 08:07 02/01/18 20:18 Labs: Abnormal Lab Results - Last 24 Hours (Table) 02/03/18 Range/Units 08:07 WBC 13.5 H (3.8-10.6) k/uL Plt Count 486 H (150-450) k/uL Neutrophils # 9.4 H (1.3-7.7) k/uL Microbiology - Last 24 Hours (Table) 02/02/18 14:34 Stool Culture - Preliminary Stool Assessment and Plan Assessment: Impression Present on admission intractable nausea vomiting diarrhea suspect due to duodenitis Mild elevated AST and ALT Computed tomography scan abdomen pelvis report indicate duodenum consistent with duodenitis Status post EGD 31 of January showed superficial gastric antral ulcers and superficial duodenal ulcer second portion without bleeding Plan Protonix 40 mg daily Defer to medicine for further medical issues Outpatient follow-up with Dr. Huffman recommended From a surgical perspective okay to proceed with a discharge defer to the timing to the attending Progress note dictated for Dr. jason godfrey on behalf of Dr. Armida The above impression and plan of care have been discussed and directed by signing physician. Deborah Spears nurse practitioner acting as scribe for signing physician.
== END 2018-02-03 14:13 | disposition home or self-care (01) | DRG 384 ==
LOC: EC 17:43 → 3SUR 18:08 → 4MS4W 02-01 08:50 → OBSVTOIN 02-02 14:38
PROVIDERS: ADMIT Hospitalist; ATTEND Hospitalist
PROC: 0DB78ZX Excision of Stomach, Pylorus, Via Natural or Artificial Opening Endoscopic, Diagnostic (ICD-10-PCS; principal; 2018-01-31 08:20)
PROC: 0DB98ZX Excision of Duodenum, Via Natural or Artificial Opening Endoscopic, Diagnostic (ICD-10-PCS; principal; 2018-01-31 08:20)
DX: K26.9 Duodenal ulcer, unspecified as acute or chronic, without hemorrhage or perforation (principal); K57.32 Diverticulitis of large intestine without perforation or abscess without bleeding; K25.9 Gastric ulcer, unspecified as acute or chronic, without hemorrhage or perforation; B00.1 Herpesviral vesicular dermatitis; E53.8 Deficiency of other specified B group vitamins; K21.9 Gastro-esophageal reflux disease without esophagitis; K22.70 Barrett's esophagus without dysplasia; K43.2 Incisional hernia without obstruction or gangrene; K52.9 Noninfective gastroenteritis and colitis, unspecified; K59.00 Constipation, unspecified; Z80.3 Family history of malignant neoplasm of breast; Z87.11 Personal history of peptic ulcer disease; Z90.49 Acquired absence of other specified parts of digestive tract; Z79.899 Other long term (current) drug therapy; R74.0 Nonspecific elevation of levels of transaminase and lactic acid dehydrogenase [LDH]
CPT/HCPCS: 43239; 74177; 80053; 82150; 83630; 83690; 83735; 85025; 87045; 87046; 87324; 88305; 99285

== ENCOUNTER 2018-02-28 08:57 | Day surgery (SDC) | payer BC ==
[2018-02-24 14:02] VITALS: BMI 25.1
--- NOTE | 2018-02-28 07:15 | P.GSHP ---
History of Present Illness H&P Date: 02/28/18 CHIEF COMPLAINT: Change in bowel habits HISTORY OF PRESENT ILLNESS: The patient is a 57-year-old male who presents with worsening chronic diarrhea colitis. Lower endoscopy was offered for further evaluation and management. PAST MEDICAL HISTORY: Please see list. PAST SURGICAL HISTORY: Please see list. MEDICATIONS: Please see list. ALLERGIES: Please see list. SOCIAL HISTORY: No illicit drug use FAMILY HISTORY: No reports of Crohn disease or ulcerative colitis. REVIEW OF ORGAN SYSTEMS: CONSTITUTIONAL: No reports of fevers or chills. PHYSICAL EXAM: VITAL SIGNS: Stable GENERAL: Well-developed pleasant in no acute distress. HEENT: No scleral icterus. Extraocular movements grossly intact. Moist buccal mucosa. NECK: Supple without lymphadenopathy. CHEST: Unlabored respirations. Equal bilateral excursions. CARDIOVASCULAR: Regular rate and rhythm. Distal 2+ pulses. ABDOMEN: Soft, nontender, nondistended. MUSCULOSKELETAL: No clubbing, cyanosis, or edema. ASSESSMENT: 1. Change in bowel habits with colitis PLAN: 1. Recommend proceeding with a lower endoscopy Past Medical History Past Medical History: GERD/Reflux Additional Past Medical History / Comment(s): erggie fundoplasty ; chronic diarrhea; stomach ulcer History of Any Multi-Drug Resistant Organisms: None Reported Past Surgical History: Cholecystectomy, Hernia Repair Additional Past Surgical History / Comment(s): Reggie fundoplasty; Colonoscopy Past Anesthesia/Blood Transfusion Reactions: Motion Sickness, Postoperative Nausea & Vomiting (PONV) Smoking Status: Never smoker - Past Family History Mother Family Medical History: Cancer Additional Family Medical History / Comment(s): Breast Cancer; Father Family Medical History: Pneumonia Additional Family Medical History / Comment(s): Medications and Allergies Home Medications Medication Instructions Recorded Confirmed Type Cholestyramine (with Sugar) 4 gm PO DAILY PRN 01/30/18 02/24/18 History [Cholestyramine Packet] Cyanocobalamin (Vitamin B-12) 1,000 mcg PO DAILY 01/30/18 02/24/18 History [Vitamin B-12] valACYclovir HCL [Valtrex] 500 mg PO Q8HR PRN 01/30/18 02/24/18 History Acetaminophen Tab [Tylenol] 650 mg PO Q4HR PRN tab 02/03/18 02/24/18 Rx Loperamide [Imodium] 2 mg PO QID PRN #30 capsule 02/03/18 02/24/18 Rx Nascent Iodine 1 tab PO DAILY 02/24/18 History Omeprazole 20 mg PO DAILY 02/24/18 02/24/18 History Allergies Allergy/AdvReac Type Severity Reaction Status Date / Time No Known Allergies Allergy Verified 02/24/18 13:54
[~2018-02-28 08:57] MED LIST: LACTATED RINGERS 1,000 ML IV SCH
[2018-02-28 09:48] VITALS: RESP 16; TEMP 97.8
[2018-02-28] MEDS ORDERED: LIDOCAINE 1% 20 ML VIAL (10MG/ML) FOR IV START INTRADERMA ONE (10:08)
[2018-02-28] MEDS ORDERED: PROPOFOL 10 MG/ML 20 ML VIAL IV ONE (10:30)
[2018-02-28 10:59] VITALS: PULSE 49
--- NOTE | 2018-02-28 11:00 | P.PCN ---
Date of Procedure: 02/28/18 Description of Procedure: PREOPERATIVE DIAGNOSIS: Chronic diarrhea. Diffuse colitis. Altered bowel function. Past history of colon polyps POSTOPERATIVE DIAGNOSIS: Past history of colon polyps Chronic diarrhea. Diffuse colitis. Altered bowel function. Diverticulosis, scattered, severe without active diverticulitis OPERATION: Colonoscopy to the ileocecal valve and appendiceal orifice. Colonoscopy with random cold forceps biopsies throughout the colon SURGEON: Shannon Huffman MD. ANESTHESIA: MAC. INDICATIONS: The patient is a 57-year-old male who reports over 1 month history of change in bowel habits with chronic diarrhea. He has been hospitalized for similar found. His symptoms has not improved lower endoscopy for diagnostic evaluation was described for collagenous colitis. Benefits and risks were described and informed consent was obtained. DESCRIPTION OF PROCEDURE: The patient had undergone Gatorade, MiraLAX and Dulcolax prep. He had been brought into the operating room and laid in the left lateral decubitus position. After adequate intravenous sedation, the rectum was examined with 2% lidocaine jelly. External hemorrhoid, grade 2 was encountered. The rectal tone was within normal limits. No lesions were palpated in the rectal vault. An Olympus colonoscope was advanced until the ileocecal valve and appendiceal orifice were clearly viewed. The prep was excellent with clear visualization of the mucosal folds. The scope was removed with visualization of each mucosal fold. Severe scattered diverticulosis was encountered. No colonic polyps were found. No evidence of focal colitis was found. Retroflexion of the scope demonstrated grade 1 internal hemorrhoids without active bleeding or inflammation. The colon was desufflated. The patient had tolerated the procedure well. Withdrawal time was over 6 minutes. FINDINGS: Internal hemorrhoids, grade 1 External prolapsed hemorrhoids. No arteriovenous malformations. No adenomatous polyps. Random cold biopsy forceps obtained for evaluation for collagenous colitis RECOMMENDATIONS: Lower endoscopy in 5 years, 2022 for personal history of colon polyps
[2018-02-28 11:30] VITALS: BP 144/79
== END 2018-02-28 11:37 | disposition home or self-care (01) ==
LOC: ORWHC2ENDO 08:57
PROVIDERS: ATTEND Surgery Plastic and Reconstructive Surgery
DX: K57.30 Diverticulosis of large intestine without perforation or abscess without bleeding (principal); K64.4 Residual hemorrhoidal skin tags; K64.0 First degree hemorrhoids; Z86.010 Personal history of colon polyps; Z87.11 Personal history of peptic ulcer disease; Z79.899 Other long term (current) drug therapy
CPT/HCPCS: 88305; 45380; J2704